=== PATIENT | male | born 1950 | race Caucasian/White ===

== ENCOUNTER 2016-05-31 10:24 | Outpatient (CLI) | payer MEDICARE ==
[2016-05-31 11:23] LABS: ALT (SGPT) 23 U/L (0-55); AST (SGOT) 27 U/L (5-34); Alkaline Phosphatase 110 U/L (40-150); Anion Gap 16 mmol/L (10-20); BUN (Urea Nitrogen) 8 mg/dL (8.4-25.7); Bilirubin, Total 0.5 mg/dL (0.2-1.2); Calc. Creatinine Clearance 0 mL/min (70-130); Calcium 9.3 mg/dL (7.8-10.44); Carbon Dioxide 28 mmol/L (23-31); Chloride 101 mmol/L (98-107); Estimated GFR-MDRD Greater than 90; Globulin 2.9 g/dL (2.4-3.5); LDL Cholesterol, Calculated 77 mg/dL; Protein, Total 7.1 g/dL (5.8-8.1)
[2016-05-31 11:34] LABS: #Basophils 0.1 thou/uL (0.0-0.2); #Eosinphils 0.2 thou/uL (0.0-0.7); #Lymphocytes 1.8 thou/uL (1.20-3.40); #Monocytes 0.8 thou/uL (0.11-0.59); #Neutrophils 3.9 thou/uL (1.40-6.50); %Basophils 1.4 % (0.0-1.0); %Eosinophils 3.1 % (0.0-10.0); %Monocytes 11.8 % (0.0-10.0); Hematocrit 43.6 % (42.0-52.0); Mean Platelet Volume 5.4 fL (7.4-10.4); White Blood Cell (WBC) Count 6.9 thou/uL (4.8-10.8)
== END 2016-05-31 10:25 | disposition home or self-care (01) ==
LOC: HPCALD 10:24
PROVIDERS: ATTEND Family Medicine
DX: E78.00 Pure hypercholesterolemia, unspecified (principal); I10 Essential (primary) hypertension
CPT/HCPCS: 36415; 80053; 80061; 84443; 85025

== ENCOUNTER 2016-12-18 11:30 | Outpatient (CLI) | payer MEDICARE ==
[2016-12-18 12:23] LABS: Anion Gap 17 mmol/L (10-20); BUN (Urea Nitrogen) 9 mg/dL (8.4-25.7); Calc. Creatinine Clearance 0 mL/min (70-130); Calcium 9.9 mg/dL (7.8-10.44); Carbon Dioxide 28 mmol/L (23-31); Chloride 102 mmol/L (98-107); Estimated GFR-MDRD Greater than 90; Glucose 92 mg/dL (80-115); Potassium 4.1 mmol/L (3.5-5.1); Sodium 143 mmol/L (136-145)
== END 2016-12-18 11:31 | disposition home or self-care (01) ==
LOC: HPCALD 11:30
PROVIDERS: ATTEND Family Medicine
DX: R39.11 Hesitancy of micturition (principal)
CPT/HCPCS: 36415; 80048

== ENCOUNTER 2017-06-05 16:11 | Outpatient (CLI) | payer MEDICARE ==
--- NOTE | 2017-06-05 19:27 | CT ---
CT OF THE ABDOMEN AND PELVIS WITHOUT CONTRAST 06/05/[address] of the abdomen and pelvis was done using no oral or IV contrast and a renal stone protocol. Axial slices were acquired, then coronal reconstructions were done. Sagittal reconstructions were ad ded as well. Areas of streaking in the lung bases, particularly the left lower lobe, appear to be scarring. The li jim, spleen, pancreas, adrenal glands, gallbladder, and abdominal aorta showed no acute findings. Art eriosclerotic change is seen in the aorta which becomes denser as one travels inferiorly. Regarding the kidneys, there are a few calcifications associated with each kidney. Some appear vascul ar, but I believe at least one in each kidney is a nonobstructing calculus. No renal mass was seen wi thin the limitations of a noncontrast study. There was no hydronephrosis or dilation of either ureter . The bowel was nondistended with no inflammatory changes around it or bowel wall thickening. There is a little bit of fluid in the distal small bowel which is a nonspecific finding. CT of the pelvis showed no pelvic masses fluid collections, or inflammatory changes. incidentally not ed in this patient were severe degenerative changes of the lumbar spine. Artifact is present at some levels due to screws from prior surgery. IMPRESSION: Bilateral nonobstructing renal calculi. No definite obstruction or ureteral calculi seen. Minor perin ephric stranding bilaterally is a nonspecific finding in the absence of other changes. POS: HOME
== END 2017-06-05 16:12 | disposition home or self-care (01) ==
LOC: BURCT 16:11
PROVIDERS: ATTEND Family Medicine
DX: R31.29 Other microscopic hematuria (principal); R10.9 Unspecified abdominal pain; N20.0 Calculus of kidney
CPT/HCPCS: 74176

== ENCOUNTER 2018-01-16 12:17 | Outpatient (CLI) | payer MEDICARE ==
--- NOTE | 2018-01-16 19:25 | RAD ---
RIGHT KNEE FOUR VIEWS 01/16/18 While surprising that there is not a large joint effusion, there is ample evidence of a nondisplaced patellar fracture. It runs transversely through the patella but the fragments are not . The joint space is normal in width. Some popliteal calcifications are seen. IMPRESSION: Nondisplaced patellar fracture. Code T POS: HOME
== END 2018-01-16 12:18 | disposition home or self-care (01) ==
LOC: BURRAD 12:17
PROVIDERS: ATTEND Nurse Practitioner Family
DX: S89.91XA Unspecified injury of right lower leg, initial encounter (principal); S82.001A Unspecified fracture of right patella, initial encounter for closed fracture